=== PATIENT | male | born 1955 | race Caucasian/White ===

== ENCOUNTER 2018-08-10 13:20 | Emergency (ER) | payer SELFPAY ==
[2018-08-10] MEDS ORDERED: TRANDATE 20 MG/5 ML SYRINGE IV ONE (13:35)
[2018-08-10] MEDS ORDERED: TRANDATE 100 MG/20 ML MDV FOR DRIP IV ONE ×2 (13:38→13:41)
--- NOTE | 2018-08-10 13:38 | ERPHSYRPT ---
- History of Present Illness Time Seen by Provider: 08/10/18 13:35 Source: patient Patient Subjective Stated Complaint: PT HERE FOR HYPERTENSION, HE WAS SEEN AT DENTIST OFFICE TODAY AND TOLD THEM THERE HE WAS NOT FEELING WELL SO THEY TOOK HES BLOOD PRESSURE AND THEY STATED IN WAS HIGH, PT ALSO STATES HE HAS HAD SOME SLURRED SPEECH THAT STARTED YESTERDAY AND IS OFF AND ON. 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 HE HAS TOOTH PULLED 10 DAYS AGO Physician History: mild dizziness and slurring since yesterday, presents w/ hypertension at the dentist office today, no injury, no pain, no visual disturbance, slurring resolved, pt took aspirin today Allergies/Adverse Reactions: No Known Drug Allergies Allergy (Unverified 08/10/18 13:30) Home Medications: Aspirin [Aspirin EC] 1 tab DAILY 08/10/18 [History] Hx Influenza Vaccination/Date Given: No Hx Pneumococcal Vaccination/Date Given: No Immunizations Up to Date: Yes - Review of Systems Constitutional: No Fever Eyes: No Eye Redness, No Vision Changes Ears, Nose, & Throat: Other (left lower toothache), No Nose Congestion Respiratory: No Dyspnea Cardiac: No Chest Pain Abdominal/Gastrointestinal: No Abdominal Pain, No Vomiting Musculoskeletal: No Back Pain, No Neck Pain Skin: No Rash Neurological: Dizziness, No Focal Weakness, No Headache, No Lethargy - Past Medical History Pertinent Past Medical History: No - Past Surgical History Past Surgical History: Yes Other Surgical History: ROSCOE SHEPARD - Social History Smoking Status: Never smoker Exposure to second hand smoke: No Drug Use: none Patient Lives Alone: Yes - Nursing Vital Signs Nursing Vital Signs: Initial Vital Signs Temperature 97.2 F 08/10/18 13:21 Pulse Rate 110 H 08/10/18 13:21 Respiratory Rate 24 08/10/18 13:21 Blood Pressure 178/115 08/10/18 13:21 O2 Sat by Pulse Oximetry 96 08/10/18 13:21 Pain Scale Pain Intensity 0 - Physical Exam General Appearance: no apparent distress Eye Exam: PERRL/EOMI, eyes nml inspection Ears, Nose, Throat Exam: normal ENT inspection, other (tender left lower dental margin, no fluc mass, no trismus) Neck Exam: normal inspection Respiratory Exam: normal breath sounds Cardiovascular Exam: regular rate/rhythm Gastrointestinal/Abdomen Exam: soft, No tenderness Extremity Exam: normal inspection Neurologic Exam: alert, oriented x 3, cooperative, 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, 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) Skin Exam: normal color, warm, dry SpO2: 96 O2 Delivery: Room Air - Course Nursing assessment & vital signs reviewed: Yes EKG Interpreted by Me: Sinus Rhythm, Other (no stemi) - CT Exams Head CT Interpretation: Negative, Tele-radiologist Report Ordered Tests: Active Orders 24 hr Category Date Time Status Clipper Automatic STAT Care 08/10/18 13:34 Active Clean Catch Urine Specimen STAT Care 08/10/18 13:33 Active EKG-ER Only STAT Care 08/10/18 13:33 Active HEAD WITHOUT CONTRAST [CT] Stat Exams 08/10/18 13:32 Taken CBC W DIFF Stat Lab 08/10/18 13:39 Completed CMP Stat Lab 08/10/18 13:39 Completed ETHYL ALCOHOL Stat Lab 08/10/18 13:39 Completed TROPONIN Q3H Lab 08/10/18 13:39 Completed TROPONIN Q3H Lab 08/10/18 16:45 Ordered TROPONIN Q3H Lab 08/10/18 19:45 Ordered TROPONIN Q3H Lab 08/10/18 22:45 Ordered TROPONIN Q3H Lab 08/11/18 01:45 Ordered Urine Triage Profile Stat Lab 08/10/18 13:34 Completed Medication Summary Discontinued Medications Generic Name Dose Route Start Last Admin Trade Name Freq PRN Reason Stop Dose Admin Labetalol HCl 20 mg 08/10/18 13:35 08/10/18 13:49 Trandate 20 Mg/5 Ml Syringe IV 08/10/18 13:36 20 mg STAT ONE Administration Labetalol HCl Confirm 08/10/18 13:38 Trandate 100 Mg/20 Ml Mdv For Drip Administered 08/10/18 13:39 Dose 100 mg IV .STK-MED ONE Labetalol HCl Confirm 08/10/18 13:41 Trandate 100 Mg/20 Ml Mdv For Drip Administered 08/10/18 13:42 Dose 100 mg IV .STK-MED ONE Lab/Rad Data: Laboratory Result Diagrams 08/10/18 13:39 08/10/18 13:39 Laboratory Results 08/10/18 08/10/18 08/10/18 Range/Units 13:39 13:39 13:39 WBC 8.6 (4.0-10.5) K/mm3 RBC 4.77 (4.1-5.6) M/mm3 Hgb 15.4 (12.5-18.0) gm/dl Hct 42.7 (42-50) % MCV 89.5 (78-100) fl MCH 32.3 H (26-32) pg MCHC 36.1 H (32-36) g/dl RDW 12.8 (11.5-14.0) % Plt Count 240 (150-450) K/mm3 MPV 9.9 H (6-9.5) fl Gran % 71.9 H (36.0-66.0) % Eos # (Auto) 0.15 (0-0.5) Absolute Lymphs (auto) 1.78 (1.0-4.6) Absolute Monos (auto) 0.47 (0.0-1.3) Lymphocytes % 20.7 L (24.0-44.0) % Monocytes % 5.5 (0.0-12.0) % Eosinophils % 1.7 (0.00-5.0) % Basophils % 0.2 (0.0-0.4) % Absolute Granulocytes 6.19 (1.4-6.9) Basophils # 0.02 (0-0.4) Sodium 141 (137-145) mmol/L Potassium 3.9 (3.5-5.1) mmol/L Chloride 105 (98-107) mmol/L Carbon Dioxide 24 (22-30) mmol/L Anion Gap 15.4 H (5-15) MEQ/L BUN 18 (9-20) mg/dL Creatinine 1.01 (0.66-1.25) mg/dL Estimated GFR > 60.0 ML/MIN Glucose 192 H (74-106) mg/dL Calcium 9.6 (8.4-10.2) mg/dL Total Bilirubin 0.80 (0.2-1.3) mg/dL AST 29 (17-59) U/L ALT 30 (0-50) U/L Alkaline Phosphatase 67 (38-126) U/L Troponin I < 0.012 (0.000-0.034) ng/mL Serum Total Protein 7.9 (6.3-8.2) g/dL Albumin 4.5 (3.5-5.0) g/dL Urine Opiates Level (NEGATIVE) Ur Methadone (NEGATIVE) Urine Barbiturates (NEGATIVE) Ur Phencyclidine (PCP) (NEGATIVE) Urine Amphetamine (NEGATIVE) U Benzodiazepine Level (NEGATIVE) Urine Cocaine (NEGATIVE) Urine Marijuana (THC) (NEGATIVE) Ethyl Alcohol < 10 (0-10) mg/dL 08/10/18 Range/Units 13:34 WBC (4.0-10.5) K/mm3 RBC (4.1-5.6) M/mm3 Hgb (12.5-18.0) gm/dl Hct (42-50) % MCV (78-100) fl MCH (26-32) pg MCHC (32-36) g/dl RDW (11.5-14.0) % Plt Count (150-450) K/mm3 MPV (6-9.5) fl Gran % (36.0-66.0) % Eos # (Auto) (0-0.5) Absolute Lymphs (auto) (1.0-4.6) Absolute Monos (auto) (0.0-1.3) Lymphocytes % (24.0-44.0) % Monocytes % (0.0-12.0) % Eosinophils % (0.00-5.0) % Basophils % (0.0-0.4) % Absolute Granulocytes (1.4-6.9) Basophils # (0-0.4) Sodium (137-145) mmol/L Potassium (3.5-5.1) mmol/L Chloride (98-107) mmol/L Carbon Dioxide (22-30) mmol/L Anion Gap (5-15) MEQ/L BUN (9-20) mg/dL Creatinine (0.66-1.25) mg/dL Estimated GFR ML/MIN Glucose (74-106) mg/dL Calcium (8.4-10.2) mg/dL Total Bilirubin (0.2-1.3) mg/dL AST (17-59) U/L ALT (0-50) U/L Alkaline Phosphatase (38-126) U/L Troponin I (0.000-0.034) ng/mL Serum Total Protein (6.3-8.2) g/dL Albumin (3.5-5.0) g/dL Urine Opiates Level NEGATIVE (NEGATIVE) Ur Methadone NEGATIVE (NEGATIVE) Urine Barbiturates NEGATIVE (NEGATIVE) Ur Phencyclidine (PCP) NEGATIVE (NEGATIVE) Urine Amphetamine NEGATIVE (NEGATIVE) U Benzodiazepine Level NEGATIVE (NEGATIVE) Urine Cocaine NEGATIVE (NEGATIVE) Urine Marijuana (THC) NEGATIVE (NEGATIVE) Ethyl Alcohol (0-10) mg/dL - Progress Progress: improved Progress Note: 08/10/18 15:12 labetolol, keflex, aspirin, see your doctor and dentist, return if worse, differential d/w pt as tia, hypertension encephalopathy Counseled pt/family regarding: lab results, diagnosis, need for follow-up, rad results - Departure Departure Disposition: Home Clinical Impression: Pain, dental Hypertension Qualifiers: Hypertension type: unspecified Qualified Code(s): I10 - Essential (primary) hypertension Condition: Stable Critical Care Time: No Referrals: NELL DEAL [Primary Care Provider] - Instructions: Malignant Hypertension (DC) Prescriptions: Cephalexin 250 mg/5 ml Susp [Keflex 250 mg/5 ml Susp] 5 ml PO QID #100 bottle Labetalol HCl 100 mg [Trandate 100 MG] 100 mg PO BID 7 Days #14 tablet
[2018-08-10 13:46] LABS: BASOPHIL % 0.2 % (0.0-0.4); Basophil (Absolute #) 0.02 (0-0.4); Eosinophil % 1.7 % (0.00-5.0); Eosinophil (Absolute #) 0.15 (0-0.5); Granulocyte Absolute (ANC) 6.19 (1.4-6.9); Granulocytes % 71.9 % (36.0-66.0); Hematocrit 42.7 % (42-50); Hemoglobin 15.4 gm/dl (12.5-18.0); Lymphocyte (Absolute #) 1.78 (1.0-4.6); Lymphocytes % 20.7 % (24.0-44.0); Mean Cell Volume 89.5 fl (78-100); Mean Corpuscular Hemoglobin 32.3 pg (26-32); Mean Corpuscular Hgb Concent. 36.1 g/dl (32-36); Mean Platelet Volume 9.9 fl (6-9.5); Monocyte (Absolute #) 0.47 (0.0-1.3); Monocytes % 5.5 % (0.0-12.0); Platelet Count 240 K/mm3 (150-450); Red Blood Count 4.77 M/mm3 (4.1-5.6); Red Cell Distribution Width 12.8 % (11.5-14.0); White Blood Count 8.6 K/mm3 (4.0-10.5)
[2018-08-10 14:00] LABS: ALBUMIN 4.5 g/dL (3.5-5.0); ALKALINE PHOSPHATASE 67 U/L (38-126); ANION GAP 15.4 MEQ/L (5-15); BLOOD UREA NITROGEN 18 mg/dL (9-20); CHLORIDE 105 mmol/L (98-107); Calcium 9.6 mg/dL (8.4-10.2); Carbon Dioxide 24 mmol/L (22-30); Creatinine 1 1.01 mg/dL (0.66-1.25); Glucose 192 mg/dL (74-106); Potassium 3.9 mmol/L (3.5-5.1); SGOT/AST 29 U/L (17-59); SGPT/ALT 30 U/L (0-50); SODIUM 141 mmol/L (137-145); Total Protein 7.9 g/dL (6.3-8.2)
[2018-08-10 14:05] LABS: ETHYL ALCOHOL < 10 mg/dL (0-10)
[2018-08-10 14:57] LABS: Amphetamine,Urine NEGATIVE (NEGATIVE); Barbiturate,Urine NEGATIVE (NEGATIVE); Benzodiazepine,Urine NEGATIVE (NEGATIVE); Cocaine,Urine NEGATIVE (NEGATIVE); Methadone,Urine NEGATIVE (NEGATIVE); PCP,Urine NEGATIVE (NEGATIVE); THC,Urine NEGATIVE (NEGATIVE)
[2018-08-10 14:59] LABS: Opiate,Urine NEGATIVE (NEGATIVE)
[2018-08-10 15:56] VITALS: BP 160/101; PULSE 75; O2SAT 98
--- NOTE | 2018-08-10 22:10 | XRAY ---
Indication: Lightheaded and dizziness. Multiple contiguous axial images obtained through the head without contrast. Comparison: None Age-appropriate global atrophy. There are a few left periventricular patchy hypoattenuations probable degenerative microvascular ischemia. No acute intracranial hemorrhage, abnormal extra-axial fluid collection, or mass effect. Fourth ventricle is midline without hydrocephalus. Alexander-white matter differentiation preserved. Bony calvarium intact. Visualized paranasal sinuses and mastoid air cells are clear. Impression: Normal aging brain including atrophy and degenerative microvascular ischemia. No acute intracranial abnormalities. Follow-up CT or MRI may yield further information if there remains further clinical concern. Comment: Preliminary interpretation was made by [facility]. No discrepancy. CTDI 70.21
== END 2018-08-10 16:12 | disposition home or self-care (01) ==
LOC: ED 13:20
DX: I10 Essential (primary) hypertension (principal); K08.89 Other specified disorders of teeth and supporting structures; R42 Dizziness and giddiness; R53.1 Weakness
CPT/HCPCS: 36000; 36415; 70450; 80053; 80307; 84484; 85025; 93005; 93041; 96374; 99284; G0480